=== PATIENT | male | born 1950 | race Caucasian/White ===

== ENCOUNTER → 2024-03-31 | Outpatient (CLI) | payer MEDICARE, MEDICAID, SELFPAY ==
--- NOTE | 2024-03-31 16:30 | EKG_ITS ---
[facility] Test Date: 2024-03-31 Pat Name: MELISA MCCLAIN Department: Room: - Gender: Male Esl Instructional Assistant: RADHAOBI : 1950 Requested By: Gordon Grey Order Number: [id number] Reading MD: Gordon Grey Measurements Intervals [place] Rate: 97 P: 87 ID: [id number] QRS: 64 QRSD: 106 T: 81 QT: 378 QTc: 481 Interpretive Statements SINUS RHYTHM Compared to ECG 04/16/2023 10:23:04 T-wave abnormality no longer present /store/S0/[id number]/[id number]
== END | disposition home or self-care (01) ==
PROVIDERS: PCP Physician Assistant; Referring Provider Student in an Organized Health Care Education/Training Program; Visit Provider Student in an Organized Health Care Education/Training Program
DX: Z01.818 Encounter for other preprocedural examination (principal); H25.811 Combined forms of age-related cataract, right eye
CPT/HCPCS: 93005

== ENCOUNTER 2024-05-20 18:56 | Emergency (ER) | payer MEDICARE, MEDICAID, SELFPAY ==
--- NOTE | 2024-05-20 19:02 | EKG_ITS ---
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
[2024-05-20 19:49] VITALS: BP 177/88; PULSE 89; RESP 18; TEMP 37.1; O2SAT 98; BMI 30.4
--- NOTE | 2024-05-20 20:03 | XR_ITS ---
Examination: Duplex scan of the lower extremity, unilateral left complete Date and time of exam: May 20, 2024 2112 hours Indications: Left leg swelling and pain beginning 2 years ago Technique: Duplex scan of the extremity veins using B-mode/grayscale imaging and Doppler spectral analysis and color flow Attention is directed to internal echogenicity, compression and augmentation involving these veins, color flow assessment, spectral analysis Findings: Major deep venous structures in the extremity demonstrate normal course and caliber. There is no evidence of deep vein thrombosis. Normal color flow and spectral analysis Impression: Negative for DVT..
--- NOTE | 2024-05-20 20:03 | XR_ITS ---
Examination: AP chest single view Technique: Upright AP chest single view Exam date and time: May 20, 20242028 hrs. Indications: Onset shortness of breath today. Findings: Mild prominence cardiac contour Moderate vascular congestion No lobar pneumonia The osseous structures are demineralized Impression: Moderate vascular congestion No lobar pneumonia
--- NOTE | 2024-05-20 20:04 | PD.EDRME ---
Rapid Medical Screening Exam RME Arrival date/time: 05/20/24 18:56 73M with extensive PMH including CVA and HTN presents to ED with LLE swelling, open wounds due to scratching because patient states it's itchy, and well as some SOB. Chief Complaint: Shortness of Breath/Dyspnea Vital signs: Vital Signs Temperature 98.8 F 05/20/24 19:49 Pulse Rate 89 05/20/24 19:49 Respiratory Rate 18 05/20/24 19:49 Blood Pressure 177/88 H 05/20/24 19:49 Pulse Oximetry (%) 98 05/20/24 19:49 Oxygen Delivery Method Room Air 05/20/24 19:49
[2024-05-20 21:23] LABS: Basophils % (Auto) 1 % (0-2.5); Eosinophils # (Auto) 0.5 Thou/mm3 (0.0-0.5); Eosinophils % (Auto) 9 % (0-10); Hematocrit 27.7 % (41.0-53.0); Immature Granulocytes % (Auto) 0 % (0-0); Immature Granulocytes Auto 0.02 Thou/mm3 (0.00-0.00); Lymphocytes # (Auto) 0.8 Thou/mm3 (1.0-4.8); Lymphocytes % (Auto) 15 % (10-50); Mean Corpuscular HGB Conc 31.8 g/dl (31.0-37.0); Mean Corpuscular Hemoglobin 26.9 pg (25.0-35.0); Mean Corpuscular Volume 85 fL (80-100); Monocytes # (Auto) 0.4 Thou/mm3 (0.0-0.8); Monocytes % (Auto) 8 % (0-12); Neutrophils # (Auto) 3.6 Thou/mm3 (1.8-7.7); Neutrophils % (Auto) 67 % (37-80); Nucleated Red Blood Cell % 0 /100 WBC (0); Platelet Count 210 Thou/mm3 (140-440); RDW Standard Deviation 49.9 fL (35.1-43.9); Red Blood Count 3.27 Miln/mm3 (4.50-5.90); White Blood Count 5.3 Thou/mm3 (3.8-10.6)
[2024-05-20 21:34] LABS: Hemoglobin 8.8 g/dL (13.5-16.0)
[2024-05-20 21:45] LABS: Alanine Aminotransferase 26 U/L (10-49); Albumin, Serum 4.1 gm/dL (3.4-4.8); Albumin/Globulin Ratio 1.4 (1.2-2.2); Alkaline Phosphatase 160 U/L (46-116); Anion Gap 10 (7-16); Aspartate Amino Transferase 34 U/L (0-34); B-Type Natriuretic Peptide 468 pg/mL (0-100); BUN/Creatinine Ratio 34 Ratio (12-20); Bilirubin,Total 0.3 mg/dL (0.3-1.2); Blood Urea Nitrogen 34 mg/dL (9-23); Calcium 9.5 mg/dL (8.3-10.6); Calcium (Corrected) 9.5 mg/dL (8.5-10.1); Carbon Dioxide 26.3 mMol/L (20.0-31.0); Chloride 103 mMol/L (98-107); Estimated Creatinine Clearance 53.4 mL/min (>60); Glucose 113 mg/dL (74-106); Osmolality,Calculated 286 (275-295); Sodium 139 mMol/L (136-145); Total Protein 7.1 gm/dL (5.7-8.2); Troponin I < 0.020 ng/mL (0.0-0.045); eGFR > 60 See Note
[2024-05-20 21:50] LABS: Partial Thromboplastin Time 31.6 Seconds (22.0-36.0); Prothrombin Time 11.3 Seconds (9.0-12.2)
[2024-05-20 23:44] VITALS: BP 145/71; PULSE 73; RESP 18; TEMP 36.3; O2SAT 97
--- NOTE | 2024-05-20 23:46 | PD.EDSOB ---
ED SOB =RME/HPI General Chief Complaint: Shortness of Breath/Dyspnea Stated Complaint: SOB x 2 days, left leg swelling Arrival date/time: 05/20/24 18:56 RME / HPI RME / HPI Narrative: 05/20/24 18:56 73M with extensive PMH including CVA and HTN presents to ED with LLE swelling, open wounds due to scratching because patient states it's itchy, and well as some SOB. Dr. Fajardo?s Main ED Evaluation: 73yo male with pmhx CVA, seizures, HTN, HLD BIB his caregiver presents to the ED for a chief complaint of wounds and swelling to his LLE. Caregiver states the patient had an appointment with his PCP today due to having open wounds to his LLE. She states the patient has been picking at his wounds, and his PCP requested an US, so she brought him in for evaluation. Denies any fever, chills or any other associated symptoms. Related Data Home Medications ?Medication ?Instructions ?Recorded ?Confirmed amlodipine 5 mg tablet (Norvasc) 10 mg PO BID #0 tabs 02/24/15 11/19/22 aspirin 81 mg tablet,delayed 81 mg PO QAM HEART ##0 02/24/15 11/19/22 release clopidogrel 75 mg tablet (Plavix) 75 mg PO HS BLOOD THINNER #0 tabs 02/24/15 11/19/22 metoprolol tartrate 50 mg tablet 100 mg PO BID HBP #0 tabs 02/24/15 11/19/22 phenytoin sodium extended 100 mg 300 mg PO HS Seizures ##0 02/24/15 08/12/22 capsule atorvastatin 10 mg tablet (Lipitor) 10 mg PO HS High Cholesterol #0 05/14/15 08/12/22 tabs clonidine HCl 0.3 mg tablet 0.3 mg PO TID High Blood Pressure 05/14/15 08/12/22 #0 tabs sertraline 100 mg tablet (Zoloft) 200 mg PO QDAY DEPRESSION #0 tabs 06/07/19 11/19/22 ascorbic acid (vitamin C) 1,000 mg 1,000 mg PO QDAY 02/14/21 11/19/22 tablet (Vitamin C) loratadine 10 mg tablet 10 mg PO QDAY 02/14/21 11/19/22 pantoprazole 20 mg tablet,delayed 20 mg PO QAM 02/14/21 11/19/22 release spironolactone 50 mg tablet 50 mg PO QDAY 02/14/21 08/12/22 tamsulosin 0.4 mg capsule (Flomax) 0.8 mg PO HS PROSTATE #0 caps 12/27/21 11/19/22 lisinopril 40 mg tablet 40 mg PO QDAY 11/19/22 11/19/22 Previous Rx's ?Medication ?Instructions ?Recorded meclizine 50 mg tablet 50 mg PO BID PRN dizziness #20 tabs 04/16/23 mupirocin 2 % topical ointment 1 applic topical BID #15 grams 05/20/24 Allergies Allergy/AdvReac Type Severity Reaction Status Date / Time codeine Allergy Unknown UNKNOWN Verified 03/20/23 13:32 PER PT Review of Systems Review of Systems Systems Reviewed: All systems reviewed, normal except as documented Past Medical History Past Medical History NEUROLOGIC: Positive Neurological Disorders, Cerebrovascular Accident and Seizures CARDIAC: Positive Cardiac Disorders, Angina, Hypercholesterolemia and Hypertension; Negative Congestive Heart Failure RESPIRATORY: Positive Pneumonia; Negative Chronic Obstructive Pulmonary Disease (COPD) GASTROINTESTINAL: Positive Gastrointestinal Disorders and Ulcer GENITOURINARY: Positive Genitourinary Disorders and Benign Prostatic Hyperplasia; Negative Renal Disease MUSCULOSKELETAL: Positive Musculoskeletal Disorders and Fractures ENDOCRINE: Negative Endocrine Disorders, Diabetes Mellitus Type 1 or Diabetes Mellitus Type 2 HEMATOLOGIC: Negative Blood Disorders OTHER HISTORY: Positive Falls; Negative Autoimmune Disease or Cancer Family History FAMILY HISTORY: Positive Family Neurologic Problems (Patient's brother suffered a stroke), Family Psychiatric Problems, Family Respiratory Disorders, Family Cardiac Disorders, Family Gastrointestinal Problems, Family Cancer and Family Surgery; Negative Family Anesthesia Reaction Social History SMOKING STATUS: Former smoker SUBSTANCE USE: does not use ED Exam Narrative Physical exam: GENERAL APPEARANCE: alert and oriented x 4, well-developed, well-nourished, no acute distress VITALS: All vitals were reviewed and the pulse ox is 97% on room air, which is normal according to my interpretation. HEENT: Normocephalic, atraumatic; pupils equal, round, reactive to light; EOMI; mucous membranes pink, moist; oropharynx clear NECK: Supple LUNGS: CTABL; no wheezes, no rales, no rhonchi HEART: Regular rate, regular rhythm; normal S1, S2; no murmurs ABDOMEN: non distended; normal BS; soft, no tenderness, no guarding, no rebound; no masses, no organomegaly, no hernia BACK: no CVA tenderness EXTREMITIES: atraumatic; 3+ pitting edema bilaterally NEUROLOGIC: awake; alert and oriented x4; cranial nerves II-XII grossly intact; no focal sensory or motor deficits PSYCHIATRIC: appropriate mood and affect SKIN: warm, dry, 3 1cm circular denuted blisters to the left anterior ankle with mild surround erythema and serosanguinous drainage; no rashes Course Course Course Narrative: CXR is ordered for determining the etiology of shortness of breath. Quality Measures none Orders Category Date Time Status EKG (ED ONLY) *Do not use* NOW Care 05/20/24 19:02 Completed EKG (ED Only) Stat Exams 05/20/24 19:02 Draft US venous doppler LE LT Stat Exams 05/20/24 20:03 Completed XR chest 1V portable Stat Exams 05/20/24 20:03 Completed B-Type Natriuretic Peptide Stat Lab 05/20/24 20:43 Completed CBC Stat Lab 05/20/24 20:43 Completed Comprehensive Metabolic Panel Stat Lab 05/20/24 20:43 Completed Partial Thromboplastin Time Stat Lab 05/20/24 20:43 Completed Prothrombin Time with INR Stat Lab 05/20/24 20:43 Completed Troponin I Stat Lab 05/20/24 20:43 Completed Vital Signs Vital signs: Vital Signs Temperature 98.8 F 05/20/24 19:49 Pulse Rate 89 05/20/24 19:49 Respiratory Rate 18 05/20/24 19:49 Blood Pressure 177/88 H 05/20/24 19:49 Pulse Oximetry (%) 98 05/20/24 19:49 Oxygen Delivery Method Room Air 05/20/24 19:49 Shortness of Breath / Dyspnea MDM Narrative MDM Narrative:: Scribe Attestation: 05/20/24 Anna Rachel am scribing for and in the presence of Dr. Fajardo. Patient data External records reviewed:: [facility] previous records (Per chart review, patient was seen here on 04/16/24 for URI.) Clinical information provided by:: director instrumentation Social determinants that could affect healthcare access:: none Patient has the following chronic illnesses:: CVA, seizures, HTN, HLD How is presenting disease/condition affected by chronic disease/condition?: uneffected by Evaluation data The following diagnostics were reviewed and interpreted by me:: lab results, radiology exam(s) and EKG tracing(s) Lab and/or radiology exams considered but not ordered:: none Interpretation Summary: WBC count is normal, PT and INR are normal, PTT is normal, CMP is normal, according to my interpretation. EKG done at 1953, NSR, rate of 88, normal axis, no ectopy, no acute ischemia, according to my interpretation. -------- [facility] Report Signed Patient: MELISA MCCLAIN [facility]. Record#: [id number] Birthdate: 1950 Age/Sex: 73 / M Location: [facility] Attending Dr: Ordering Physician: Robby Zhu PA-C Date of Service: 05/20/24 Procedure(s): XR chest 1V portable Accession Number(s): [id number] cc: Kevan Leon PA-C; Beau Jason MD; Robby Zhu PA-C~ Examination: AP chest single view Technique: Upright AP chest single view Exam date and time: May 20, 2024 2029 hrs. Indications: Onset shortness of breath today. Findings: Mild prominence cardiac contour Moderate vascular congestion No lobar pneumonia The osseous structures are demineralized Impression: Moderate vascular congestion No lobar pneumonia Dictated By: Beau Jason MD Signed By: <Electronically signed by Beau Jason MD in OV> 05/20/242052 [facility] Report Signed Patient: MELISA MCCLAIN [facility]. Record#: [id number] Birthdate: 1950 Age/Sex: 73 / M Location: [facility] Attending Dr: Ordering Physician: Robby Zhu PA-C Date of Service: 05/20/24 Procedure(s): US venous doppler LE LT Accession Number(s): [id number] cc: Kevan Leon PA-C; Beau Jason MD; Robby Zhu PA-C~ Examination: Duplex scan of the lower extremity, unilateral left complete Date and time of exam: May 20, 2024 2112 hours Indications: Left leg swelling and pain beginning 2 years ago Technique: Duplex scan of the extremity veins using B-mode/grayscale imaging and Doppler spectral analysis and color flow Attention is directed to internal echogenicity, compression and augmentation involving these veins, color flow assessment, spectral analysis Findings: Major deep venous structures in the extremity demonstrate normal course and caliber. There is no evidence of deep vein thrombosis. Normal color flow and spectral analysis Impression: Negative for DVT.. Dictated By: Beau Jason MD Signed By: <Electronically signed by Beau Jason MD in OV> 05/20/24 2131 Medications / Prescriptions Medications or Prescriptions considered but not ordered:: none Medication administrations:: see above, if any Consultations Consultation(s) initiated? (list below): No Diagnosis Shortness of Breath Differential Diagnosis: other (cellulitis, necrotizing fasciitis, subcutaneous abscess) Most likely diagnosis given after review of the tests above:: see below Admission Indicated Admission indicated?: not indicated Admission Request Was there a request for admission?: No Disposition Plan Disposition Plan: Discharge Discharge Attestation Discharge Attestation: The patient and all family members were given an opportunity to ask questions and understood the discharge instructions. Discharge instructions specifically effects, indications for sooner follow up or return to the emergency department, and the expected course of current diagnosis. Patient condition: Stable Discharge Plan Plan Patient Disposition: HOME (Self Care) Prescriptions/Referrals Prescriptions/Med Rec: New mupirocin 2 % ointment 1 applic topical BID Qty: 15 0RF No Action lisinopril 40 mg tablet 40 mg PO QDAY phenytoin sodium extended 100 MG capsule 300 mg PO HS Qty: 0 clopidogrel [Plavix] 75 MG tablet 75 mg PO HS Qty: 0 amlodipine [Norvasc] 5 MG tablet 10 mg PO BID Qty: 0 aspirin 81 mg Tablet,Delayed Release (Dr/Ec) 81 mg PO QAM Qty: 0 metoprolol tartrate 50 MG tablet 100 mg PO BID Qty: 0 atorvastatin [Lipitor] 10 MG tablet 10 mg PO HS Qty: 0 clonidine HCl 0.3 MG tablet 0.3 mg PO TID Qty: 0 sertraline [Zoloft] 100 mg tablet 200 mg PO QDAY Qty: 0 tamsulosin [Flomax] 0.4 mg capsule 0.8 mg PO HS Qty: 0 ascorbic acid (vitamin C) [Vitamin C] 1,000 mg Tablet 1,000 mg PO QDAY pantoprazole 20 mg Tablet,Delayed Release (Dr/Ec) 20 mg PO QAM loratadine 10 mg Tablet 10 mg PO QDAY spironolactone 50 mg Tablet 50 mg PO QDAY meclizine 50 mg tablet 50 mg PO BID PRN (Reason: dizziness) Qty: 20 0RF Referrals: Kevan Leon PA-C [Primary Care Provider] - In 1 week Problem List Clinical Impression: Pedal edema, Serous bulla of skin, Cellulitis Patient/Caregiver Discharge Instructions Discharge Activity: activity as tolerated Education Materials: Discharge Instructions for Cellulitis, ED Cellulitis, ED Lymphedema Additional Instructions: Please return to the emergency department if you develop any worsening or you do not improve within the next 48 hours and we will help you Otherwise you should follow-up with your primary care doctor within the next several days Print Language: [place] Stand Alone Forms: [employer] Award Info., Patient Portal Info Letter
== END 2024-05-21 00:16 | disposition home or self-care (01) ==
PROVIDERS: Physician Assistant; Emergency Provider Emergency Medicine; PCP Physician Assistant
DX: L03.116 Cellulitis of left lower limb (principal); R06.02 Shortness of breath; I10 Essential (primary) hypertension; E78.5 Hyperlipidemia, unspecified; Z86.73 Personal history of transient ischemic attack (TIA), and cerebral infarction without residual deficits; Z87.891 Personal history of nicotine dependence
CPT/HCPCS: 36415; 71045; 80053; 83880; 84484; 85025; 85610; 85730; 93005; 93971; 99284

== ENCOUNTER 2024-06-11 18:21 | Emergency (ER) | payer MEDICARE, MEDICAID, SELFPAY ==
[2024-06-11 19:06] VITALS: BP 149/76; PULSE 79; RESP 18; TEMP 37; O2SAT 95
--- NOTE | 2024-06-11 19:07 | EKG_ITS ---
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
--- NOTE | 2024-06-11 19:27 | XR_ITS ---
Examination: AP chest single view Technique one AP upright portable chest single view Exam date and time: June 03, 20241957 hrs. Comparison May 20, 2024 Indications: Patient fell 3 days ago with injury to the chest, chest pain Findings: No pneumothorax Mild enlargement cardiac contour Ectatic thoracic aorta Clavicles ribs appear intact Impression: No pneumothorax Osseous structures appear intact
--- NOTE | 2024-06-11 19:27 | XR_ITS ---
Examination: CT cervical spine without contrast 2-D sagittal reconstructions 2-D coronal reconstructions 3-D reconstructions. Exam date and time:June 03, 2024 1938 hrs. Patient fell today with into the neck, neck pain CTDI:vol (mGy) 7.91 DLP: (mGycm) 188 pain Technique: Multiple 2 mm axial sections of the cervical spine have been obtained. The coronal and sagittal reconstructions have been obtained. 3-D reconstructions have been obtained. Low dose protocols were performed. One or more of the following dose reduction techniques were used; automated exposure control, adjustment of the mA and/or KV according to patient size, use of iterative reconstruction technique. Findings: Axial sections demonstrate intact base of the skull. C1 exhibit satisfactory relationship to the odontoid. No acute cervical vertebral body fracture seen. Alignment posterior spinous processes satisfactory. Impression: No acute cervical fracture.
--- NOTE | 2024-06-11 19:27 | XR_ITS ---
Examination: CT brain head without contrast. 2-D sagittal coronal reconstructions Date and time of exam:June 11, 2024 1938 hrs. Patient fell today with injury to head, head pain Comparison: July 17, 2021 CTDI: vol (mGy):45.4 DLP: (mGycm):907 Technique: Multiple CT axial sections of the brain have been obtained, 5 mm slice thickness. Contrast has not been administered. 2-D sagittal, coronal reconstructions have been obtained Low dose protocols were performed. One or more of the following dose reduction techniques were used; automated exposure control, adjustment of the mA and/or KV according to patient size, use of iterative reconstruction technique. Findings: The study is severely limited secondary to patient motion There remains severe enlargement of the left lateral ventricle with left cerebral hemisphere atrophy No gross hemorrhage Prominent right maxillary sinusitis Acute right mastoiditis Impression: Severely limited study secondary to patient motion No gross hemorrhage Acute right mastoiditis
--- NOTE | 2024-06-11 19:28 | PD.EDRME ---
Rapid Medical Screening Exam [facility] Arrival date/time: 06/11/24 18:21 73M with history of CVA, HTN and seizures presents to ED with caregiver for increased weakness in the last 3 days leading to several falls. Patient has no complaints. Chief Complaint: Fall Vital signs: Vital Signs Temperature 98.6 F 06/11/24 19:06 Pulse Rate 79 06/11/24 19:06 Respiratory Rate 18 06/11/24 19:06 Blood Pressure 149/76 H 06/11/24 19:06 Pulse Oximetry (%) 95 06/11/24 19:06 Oxygen Delivery Method Room Air 06/11/24 19:06
[2024-06-11 20:15] LABS: Basophils % (Auto) 0 % (0-2.5); Eosinophils # (Auto) 0.2 Thou/mm3 (0.0-0.5); Eosinophils % (Auto) 2 % (0-10); Hematocrit 24.2 % (41.0-53.0); Immature Granulocytes % (Auto) 0 % (0-0); Immature Granulocytes Auto 0.01 Thou/mm3 (0.00-0.00); Lymphocytes # (Auto) 1.1 Thou/mm3 (1.0-4.8); Lymphocytes % (Auto) 17 % (10-50); Mean Corpuscular HGB Conc 33.9 g/dl (31.0-37.0); Mean Corpuscular Hemoglobin 27.6 pg (25.0-35.0); Mean Corpuscular Volume 82 fL (80-100); Monocytes # (Auto) 0.8 Thou/mm3 (0.0-0.8); Monocytes % (Auto) 12 % (0-12); Neutrophils # (Auto) 4.4 Thou/mm3 (1.8-7.7); Neutrophils % (Auto) 68 % (37-80); Nucleated Red Blood Cell % 0 /100 WBC (0); Platelet Count 162 Thou/mm3 (140-440); RDW Standard Deviation 47.9 fL (35.1-43.9); Red Blood Count 2.97 Miln/mm3 (4.50-5.90); White Blood Count 6.5 Thou/mm3 (3.8-10.6)
[2024-06-11 20:19] LABS: Hemoglobin 8.2 g/dL (13.5-16.0)
[2024-06-11 20:25] LABS: Alanine Aminotransferase 24 U/L (10-49); Albumin, Serum 3.6 gm/dL (3.4-4.8); Albumin/Globulin Ratio 1.3 (1.2-2.2); Alkaline Phosphatase 133 U/L (46-116); Anion Gap 7 (7-16); Aspartate Amino Transferase 33 U/L (0-34); BUN/Creatinine Ratio 34 Ratio (12-20); Bilirubin,Total 0.3 mg/dL (0.3-1.2); Blood Urea Nitrogen 44 mg/dL (9-23); Calcium 8.3 mg/dL (8.3-10.6); Calcium (Corrected) 8.6 mg/dL (8.5-10.1); Carbon Dioxide 24.8 mMol/L (20.0-31.0); Chloride 100 mMol/L (98-107); Creatinine (Component) 1.3 mg/dL (0.6-1.3); Globulin 2.7 gm/dL (2.3-3.5); Glucose 91 mg/dL (74-106); Osmolality,Calculated 275 (275-295); Potassium 3.9 mMol/L (3.4-5.1); Sodium 132 mMol/L (136-145); Total Protein 6.3 gm/dL (5.7-8.2); Troponin I < 0.020 ng/mL (0.0-0.045); eGFR 58 See Note
--- NOTE | 2024-06-11 21:31 | PD.EDFALL ---
ED Fall Injury RME/HPI General Chief Complaint: Fall Stated Complaint: Fall X 3, swollen legs Time Seen by Provider: 06/11/24 21:39 Source: family Arrival date/time: 06/11/24 18:21 Limitations: no limitations RME / HPI RME / HPI Narrative: Dr. Ordoñez?s Main ED Evaluation: 73-year-old male with a history of CVA, HTN, and seizures presents to the emergency department accompanied by his caregiver for evaluation of progressive weakness over the past three days, which has resulted in multiple falls. The patient himself does not endorse any specific complaints but was noted to have fallen while attempting to use the restroom unassisted. The exact time of the incident is unknown, and there is no reported loss of consciousness, or seizure activity at this time. [facility] [place] [facility] staff sent patient to ED for further evaluation. Related Data Home Medications ?Medication ?Instructions ?Recorded ?Confirmed amlodipine 5 mg tablet (Norvasc) 10 mg PO BID #0 tabs 02/24/15 11/19/22 aspirin 81 mg tablet,delayed 81 mg PO QAM HEART ##0 02/24/15 11/19/22 release clopidogrel 75 mg tablet (Plavix) 75 mg PO HS BLOOD THINNER #0 tabs 02/24/15 11/19/22 metoprolol tartrate 50 mg tablet 100 mg PO BID HBP #0 tabs 02/24/15 11/19/22 phenytoin sodium extended 100 mg 300 mg PO HS Seizures ##0 02/24/15 08/12/22 capsule atorvastatin 10 mg tablet (Lipitor) 10 mg PO HS High Cholesterol #0 05/14/15 08/12/22 tabs clonidine HCl 0.3 mg tablet 0.3 mg PO TID High Blood Pressure 05/14/15 08/12/22 #0 tabs sertraline 100 mg tablet (Zoloft) 200 mg PO QDAY DEPRESSION #0 tabs 06/07/19 11/19/22 ascorbic acid (vitamin C) 1,000 mg 1,000 mg PO QDAY 02/14/21 11/19/22 tablet (Vitamin C) loratadine 10 mg tablet 10 mg PO QDAY 02/14/21 11/19/22 pantoprazole 20 mg tablet,delayed 20 mg PO QAM 02/14/21 11/19/22 release spironolactone 50 mg tablet 50 mg PO QDAY 02/14/21 08/12/22 tamsulosin 0.4 mg capsule (Flomax) 0.8 mg PO HS PROSTATE #0 caps 12/27/21 11/19/22 lisinopril 40 mg tablet 40 mg PO QDAY 11/19/22 11/19/22 Previous Rx's ?Medication ?Instructions ?Recorded meclizine 50 mg tablet 50 mg PO BID PRN dizziness #20 tabs 04/16/23 mupirocin 2 % topical ointment 1 applic topical BID #15 grams 05/20/24 doxycycline hyclate 100 mg capsule 100 mg PO BID #20 caps 06/12/24 Allergies Allergy/AdvReac Type Severity Reaction Status Date / Time codeine Allergy Unknown UNKNOWN Verified 06/11/24 18:25 PER PT morphine Allergy Verified 06/11/24 18:25 Review of Systems Review of Systems Systems Reviewed: All systems reviewed, normal except as documented Past Medical History Past Medical History NEUROLOGIC: Positive Neurological Disorders, Cerebrovascular Accident and Seizures CARDIAC: Positive Cardiac Disorders, Angina, Hypercholesterolemia and Hypertension; Negative Congestive Heart Failure RESPIRATORY: Positive Pneumonia; Negative Chronic Obstructive Pulmonary Disease (COPD) GASTROINTESTINAL: Positive Gastrointestinal Disorders and Ulcer GENITOURINARY: Positive Genitourinary Disorders and Benign Prostatic Hyperplasia; Negative Renal Disease MUSCULOSKELETAL: Positive Musculoskeletal Disorders and Fractures ENDOCRINE: Negative Endocrine Disorders, Diabetes Mellitus Type 1 or Diabetes Mellitus Type 2 HEMATOLOGIC: Negative Blood Disorders OTHER HISTORY: Positive Falls; Negative Autoimmune Disease or Cancer Family History FAMILY HISTORY: Positive Family Neurologic Problems (Patient's brother suffered a stroke), Family Psychiatric Problems, Family Respiratory Disorders, Family Cardiac Disorders, Family Gastrointestinal Problems, Family Cancer and Family Surgery; Negative Family Anesthesia Reaction Social History SMOKING STATUS: Never smoker SUBSTANCE USE: does not use ED Exam Narrative Physical exam: The patient has bilateral pedal edema extending up to the knees. There is an abrasion on the forearm that appears old and decrepitous, with no signs of active infection or acute inflammation. The rectal exam reveals guaiac-negative light brown stool with no visible blood. The skin exam shows no rashes or ulcers, but erythema is present on the left anterior guerrero, lateral aspect. The extremities exhibit bilateral non-pitting edema, with the right leg appearing slightly larger than the left, both hands are contracted, and no calf tenderness is noted. General Limitations: Present no limitations General appearance: Present alert and in no apparent distress Head Head exam: Present atraumatic Eye Eye exam: Present normal appearance, PERRL and EOMI ENT ENT exam: Present normal exam, normal oropharynx and mucous membranes moist Neck Neck exam: Present normal inspection, full ROM and trachea midline Chest Chest inspection: Present normal inspection and symmetric chest wall rise Respiratory Respiratory exam: Present normal lung sounds bilaterally Cardiovascular Cardiovascular exam: Present regular rate, normal rhythm and normal heart sounds Abdominal Exam Abdominal exam: Present soft and normal bowel sounds Extremities Exam Extremities exam: Present normal inspection and full ROM Back Exam Back exam: Present normal inspection and full ROM Neurological Exam Neurological exam: Present alert, oriented X3 and CN II-XII intact Psychiatric Psychiatric exam: Present normal affect and normal mood Skin Skin exam: Present warm, dry, intact and normal color Course Course Course Narrative: CXR is ordered for determining etiology of chest pain. Quality Measures none Orders Category Date Time Status Blood glucose [Bedside Blood Glucose] NOW Care 06/11/24 19:07 Active EKG (ED ONLY) *Do not use* NOW Care 06/11/24 19:[address] cervical spine wo con Stat Exams 06/11/24 19:[address] head/brain wo con Stat Exams 06/11/24 19:27 Completed EKG (ED Only) Stat Exams 06/11/24 19:07 Draft US venous doppler LE BI Stat Exams 06/11/24 22:00 Completed XR chest 1V portable Stat Exams 06/11/24 19:27 Completed CBC Stat Lab 06/11/24 19:50 Completed Comprehensive Metabolic Panel Stat Lab 06/11/24 19:50 Completed Occult Blood, Stool (LAB) Stat Lab 06/11/24 21:56 Completed Troponin I Stat Lab 06/11/24 19:50 Completed Urinalysis, C/S if Indicated Stat Lab 06/11/24 22:12 Completed Vital Signs Vital signs: Vital Signs Temperature 98.6 F 06/11/24 19:06 Pulse Rate 79 06/11/24 19:06 Respiratory Rate 18 06/11/24 19:06 Blood Pressure 149/76 H 06/11/24 19:06 Pulse Oximetry (%) 95 06/11/24 19:06 Oxygen Delivery Method Room Air 06/11/24 19:06 Procedures -ED Procedure Comment EKG obtained on 06/11/24 at 19:11 shows a normal sinus rhythm at a rate of 79 bpm, with no ST elevations, no ST depressions, and nonspecific T-wave abnormalities; findings do not suggest acute STEMI or ischemic changes, according to my interpretation. Fall [facility] Narrative [facility] Narrative:: Scribe Attestation: I, Rebekah Greer, am scribing for and in the presence of Dr. Ordoñez. Provider Notation: Although this document has been carefully reviewed, there may still be some phonetic and other typographical errors. These errors are purely grammatical due to imperfections in the software program and should not be construed in any way to compromise the substance of the patient's medical care during this visit. Patient data External records reviewed:: [facility] previous records Clinical information provided by:: human resources trainer Social determinants that could affect healthcare access:: none Patient has the following chronic illnesses:: see PMH How is presenting disease/condition affected by chronic disease/condition?: uneffected by Evaluation data The following diagnostics were reviewed and interpreted by me:: lab results, radiology exam(s) and EKG tracing(s) Lab and/or radiology exams considered but not ordered:: na Interpretation Summary: Examination: AP chest single view Technique one AP upright portable chest single view Exam date and time: June 03, 20241957 hrs. Comparison May 20, 2024 Indications: Patient fell 3 days ago with injury to the chest, chest pain Findings: No pneumothorax Mild enlargement cardiac contour Ectatic thoracic aorta Clavicles ribs appear intact Impression: No pneumothorax Osseous structures appear intact Dictated By: Beau Jason MD Examination: CT brain head without contrast. Date and time of exam:June 11, 2024 1938 hrs. Patient fell today with injury to head, head pain Comparison: July 17, 2021 Findings: The study is severely limited secondary to patient motion There remains severe enlargement of the left lateral ventricle with left cerebral hemisphere atrophy No gross hemorrhage Prominent right maxillary sinusitis Acute right mastoiditis Impression: Severely limited study secondary to patient motion No gross hemorrhage Acute right mastoiditis Dictated By: Beau Jason MD Examination: CT cervical spine without contrast Exam date and time:June 03, 2024 1938 hrs. Patient fell today with into the neck, neck pain Findings: Axial sections demonstrate intact base of the skull. C1 exhibit satisfactory relationship to the odontoid. No acute cervical vertebral body fracture seen. Alignment posterior spinous processes satisfactory. Impression: No acute cervical fracture. Dictated By: Beau Jason MD [place] [facility] Report Signed Patient: MELISA MCCLAIN Record#: [id number] Birthdate: 1950 Age/Sex: 73 / M Location: [facility] Attending Dr: Ordering Physician: Lata Ordoñez MD Date of Service: 06/11/24 Procedure(s): US venous doppler LE BI Accession Number(s): [id number] cc: Cleveland Cotter MD; Beau Jason MD; Lata Ordoñez MD~ Examination: Venous duplex lower extremity sonogram, bilateral. Date and time of exam: June 11, 2024 1030 hrs. Indications: Bilateral leg swelling and pain after falling 3 days ago Technique: Multiple sonographic images of the deep venous system have been obtained. B-mode/2-D grayscale imaging of vascular structures and Doppler spectral analysis (waveforms) and color performed Both legs are examined. Findings: Deep venous systems do not demonstrate abnormal echogenicity. No diagnostic visualization right popliteal vein All visualized deep veins exhibit compressibility. Impression: Negative for deep vein thrombosis Dictated By: Beau Jason MD Signed By: <Electronically signed by Beau Jason MD in OV> 06/11/24 2322 Medications / Prescriptions Medications or Prescriptions considered but not ordered:: na Medication administrations:: as above, if any Consultations Consultation(s) initiated? (list below): No Diagnosis Fall Differential Diagnosis: other (GI bleed, renal failure, cellulitis, DVT) Most likely diagnosis given after review of the tests above:: see below Admission Indicated Admission indicated?: not indicated Admission Request Was there a request for admission?: No Disposition Plan Disposition Plan: Discharge Discharge Attestation Discharge Attestation: The patient and all family members were given an opportunity to ask questions and understood the discharge instructions. Discharge instructions specifically effects, indications for sooner follow up or return to the emergency department, and the expected course of current diagnosis. Patient condition: Stable Discharge Plan Plan Patient Disposition: Xfer Skilled Nsg Fac (SNF) Patient condition on transfer: Stable Prescriptions/Referrals Prescriptions/Med Rec: No Action lisinopril 40 mg tablet 40 mg PO QDAY phenytoin sodium extended 100 MG capsule 300 mg PO HS Qty: 0 clopidogrel [Plavix] 75 MG tablet 75 mg PO HS Qty: 0 amlodipine [Norvasc] 5 MG tablet 10 mg PO BID Qty: 0 aspirin 81 mg Tablet,Delayed Release (Dr/Ec) 81 mg PO QAM Qty: 0 metoprolol tartrate 50 MG tablet 100 mg PO BID Qty: 0 atorvastatin [Lipitor] 10 MG tablet 10 mg PO HS Qty: 0 clonidine HCl 0.3 MG tablet 0.3 mg PO TID Qty: 0 sertraline [Zoloft] 100 mg tablet 200 mg PO QDAY Qty: 0 tamsulosin [Flomax] 0.4 mg capsule 0.8 mg PO HS Qty: 0 ascorbic acid (vitamin C) [Vitamin C] 1,000 mg Tablet 1,000 mg PO QDAY pantoprazole 20 mg Tablet,Delayed Release (Dr/Ec) 20 mg PO QAM loratadine 10 mg Tablet 10 mg PO QDAY spironolactone 50 mg Tablet 50 mg PO QDAY meclizine 50 mg tablet 50 mg PO BID PRN (Reason: dizziness) Qty: 20 0RF mupirocin 2 % ointment 1 applic topical BID Qty: 15 0RF Referrals: Cleveland Cotter MD [Primary Care Provider] - In 1 week Problem List Clinical Impression: Cellulitis Patient/Caregiver Discharge Instructions Education Materials: ED Cellulitis Print Language: Hebrew Stand Alone Forms: [employer] Award Info., Patient Portal Info Letter
[2024-06-11 21:40] VITALS: BP 158/88; PULSE 81; RESP 19; TEMP 36.8; O2SAT 98
--- NOTE | 2024-06-11 22:00 | XR_ITS ---
Examination: Venous duplex lower extremity sonogram, bilateral. Date and time of exam: June 11, 2024 1030 hrs. Indications: Bilateral leg swelling and pain after falling 3 days ago Technique: Multiple sonographic images of the deep venous system have been obtained. B-mode/2-D grayscale imaging of vascular structures and Doppler spectral analysis (waveforms) and color performed Both legs are examined. Findings: Deep venous systems do not demonstrate abnormal echogenicity. No diagnostic visualization right popliteal vein All visualized deep veins exhibit compressibility. Impression: Negative for deep vein thrombosis
[2024-06-11 22:19] LABS: Collection Type, Urine Clean Catch
[2024-06-11 22:26] LABS: Bacteria,Urine Rare; Bilirubin,Urine Negative (Negative); Blood,Urine 2+ (Negative); Clarity,Urine Clear (Clear/Hazy); Color,Urine Lt-Yellow (Lt Yel-Yel); Culture Indicated,Urine Not Indicated; Glucose, Urine Negative (Negative); Ketones,Urine Negative (Negative); Leukocyte Esterase,Urine Negative (Negative); Nitrite,Urine Negative (Negative); Protein,Urine 2+ (Neg - Trace); RBC,Urine 67 /hpf (0-3); Specific Gravity,Urine 1.014 (1.001-1.035); Squamous Epithelial Cell,Urine < 1 /hpf (0-5); Urobilinogen,Urine Negative mg/dL (0.0-1.0); WBC,Urine 1 /hpf (0-5)
[2024-06-11 22:54] LABS: OBS Developer Lot # 23003; OBS QC OK? Yes; Occult Blood, Stool Negative (Negative)
[2024-06-12] MEDS: cefTRIAXone 1,000 MG, LIDOCAINE 1% 20 ML 2.1 ML IM (00:58)
== END 2024-06-12 01:11 | disposition home or self-care (01) ==
PROVIDERS: Physician Assistant; Emergency Provider Emergency Medicine; PCP Family Medicine
DX: L03.115 Cellulitis of right lower limb (principal); L03.116 Cellulitis of left lower limb; H70.001 Acute mastoiditis without complications, right ear; R07.9 Chest pain, unspecified; M54.2 Cervicalgia; R29.6 Repeated falls; I10 Essential (primary) hypertension; Z86.73 Personal history of transient ischemic attack (TIA), and cerebral infarction without residual deficits; Z88.5 Allergy status to narcotic agent; W19.XXXA Unspecified fall, initial encounter
CPT/HCPCS: 36415; 70450; 71045; 72125; 80053; 81001; 82270; 84484; 85025; 93005; 93970; 96372; 99284; J0696; J3490

== ENCOUNTER 2024-06-20 12:59 | Emergency (ER) | payer MEDICARE, MEDICAID, SELFPAY ==
[2024-06-20] VITALS (9 sets, daily range): BP systolic 141–181; BP diastolic 75–122; PULSE 58–78; RESP 17–97; TEMP 36.6–36.8; O2SAT 16–100; BMI 29.0
--- NOTE | 2024-06-20 13:08 | PD.EDAMS ---
Altered Mental Status RME/HPI General Chief Complaint: General Adult/Misc Complain Stated Complaint: WEAKNESS Time Seen by Provider: 06/20/24 13:09 Arrival date/time: 06/20/24 12:59 RME / HPI RME / HPI narrative: DR. CHAND MAIN ED EVALUATION: 73 year old male with past medical history significant for CVA, hypertension, and seizures presents to the Emergency Department BIBA from alf with complaint of altered mental status per alf auto top mechanic; however, per EMS, patient was alert and oriented x4 and was able to identify all caregivers. His blood glucose here was 50 but patient oriented and has no complaints. Patient denies any pain or any symptoms at all, asymptomatic. Related Data Home Medications ?Medication ?Instructions ?Recorded ?Confirmed amlodipine 5 mg tablet (Norvasc) 10 mg PO BID #0 tabs 02/24/15 11/19/22 aspirin 81 mg tablet,delayed 81 mg PO QAM HEART ##0 02/24/15 11/19/22 release clopidogrel 75 mg tablet (Plavix) 75 mg PO HS BLOOD THINNER #0 tabs 02/24/15 11/19/22 metoprolol tartrate 50 mg tablet 100 mg PO BID HBP #0 tabs 02/24/15 11/19/22 phenytoin sodium extended 100 mg 300 mg PO HS Seizures ##0 02/24/15 08/12/22 capsule atorvastatin 10 mg tablet (Lipitor) 10 mg PO HS High Cholesterol #0 05/14/15 08/12/22 tabs clonidine HCl 0.3 mg tablet 0.3 mg PO TID High Blood Pressure 05/14/15 08/12/22 #0 tabs sertraline 100 mg tablet (Zoloft) 200 mg PO QDAY DEPRESSION #0 tabs 06/07/19 11/19/22 ascorbic acid (vitamin C) 1,000 mg 1,000 mg PO QDAY 02/14/21 11/19/22 tablet (Vitamin C) loratadine 10 mg tablet 10 mg PO QDAY 02/14/21 11/19/22 pantoprazole 20 mg tablet,delayed 20 mg PO QAM 02/14/21 11/19/22 release spironolactone 50 mg tablet 50 mg PO QDAY 02/14/21 08/12/22 tamsulosin 0.4 mg capsule (Flomax) 0.8 mg PO HS PROSTATE #0 caps 12/27/21 11/19/22 lisinopril 40 mg tablet 40 mg PO QDAY 11/19/22 11/19/22 Previous Rx's ?Medication ?Instructions ?Recorded meclizine 50 mg tablet 50 mg PO BID PRN dizziness #20 tabs 04/16/23 mupirocin 2 % topical ointment 1 applic topical BID #15 grams 05/20/24 doxycycline hyclate 100 mg capsule 100 mg PO BID #20 caps 06/12/24 Allergies Allergy/AdvReac Type Severity Reaction Status Date / Time codeine Allergy Unknown UNKNOWN Verified 06/11/24 18:25 PER PT morphine Allergy Verified 06/11/24 18:25 Review of Systems Review of Systems Systems Reviewed: All systems reviewed, normal except as documented Narrative Review of Systems: GEN: No fever, no chills, no weight loss EYES: No discharge, no visual changes, no pain HEENT: No ear pain, no congestion, no sore throat PULM: No shortness of breath, no cough, no congestion CV: No chest pain, no dyspnea on exertion, no palpitations GI: No nausea, no vomiting, no diarrhea, no pain, no constipation : No frequency, no urgency and no dysuria MUSC/SKEL: No joint pain, no back pain SKIN: No rash PSYCH: No hallucinations, no depression HEME/LYMPH: No easy bleeding or bruising tendencies NEURO: No weakness, no headache Past Medical History Past Medical History NEUROLOGIC: Positive Neurological Disorders, Cerebrovascular Accident and Seizures CARDIAC: Positive Cardiac Disorders, Angina, Hypercholesterolemia and Hypertension; Negative Congestive Heart Failure RESPIRATORY: Positive Pneumonia; Negative Chronic Obstructive Pulmonary Disease (COPD) GASTROINTESTINAL: Positive Gastrointestinal Disorders and Ulcer GENITOURINARY: Positive Genitourinary Disorders and Benign Prostatic Hyperplasia; Negative Renal Disease MUSCULOSKELETAL: Positive Musculoskeletal Disorders and Fractures ENDOCRINE: Negative Endocrine Disorders, Diabetes Mellitus Type 1 or Diabetes Mellitus Type 2 HEMATOLOGIC: Negative Blood Disorders OTHER HISTORY: Positive Falls; Negative Autoimmune Disease or Cancer Family History FAMILY HISTORY: Positive Family Neurologic Problems (Patient's brother suffered a stroke), Family Psychiatric Problems, Family Respiratory Disorders, Family Cardiac Disorders, Family Gastrointestinal Problems, Family Cancer and Family Surgery; Negative Family Anesthesia Reaction Social History SMOKING STATUS: Never smoker SUBSTANCE USE: does not use ALCOHOL: Never ED Exam Narrative Physical exam: GENERAL APPEARANCE: alert and oriented x 4, well-developed, well-nourished, no acute distress VITALS: All vitals were reviewed and the pulse ox is 99% on room air, which is normal according to my interpretation. HEENT: Normocephalic, atraumatic; pupils equal, round, reactive to light; EOMI; mucous membranes pink, moist; oropharynx clear NECK: Supple LUNGS: CTABL; no wheezes, no rales, no rhonchi HEART: Regular rate, regular rhythm; normal S1, S2; no murmurs ABDOMEN: non distended; normal BS; soft, no tenderness, no guarding, no rebound; no masses, no organomegaly, no hernia BACK: no CVA tenderness EXTREMITIES: atraumatic; no edema NEUROLOGIC: awake; alert and oriented x4; cranial nerves II-XII grossly intact; no focal sensory or motor deficits PSYCHIATRIC: appropriate mood and affect SKIN: warm, dry, normal color; no rashes Course Quality Measures none Orders Category Date Time Status US venous doppler LE LT Stat Exams 06/20/24 16:50 Completed UA, C/S IF [Urinalysis, C/S if Indicated] Stat Lab 06/20/24 15:11 Completed Dextrose 50% Syr [D50w Syringe Abboject] Med 06/20/24 13:05 Discontinued 50 ml IV X1 ONE cloNIDine HCL [Catapres] Med 06/20/24 19:25 Discontinued 0.3 mg PO X1 ONE Vital Signs Vital signs: Vital Signs Temperature 98.2 F 06/20/24 13:06 Pulse Rate 58 L 06/20/24 13:06 Respiratory Rate 17 06/20/24 13:06 Blood Pressure 149/75 H 06/20/24 13:06 Pulse Oximetry (%) 99 06/20/24 13:06 Oxygen Delivery Method Room Air 06/20/24 13:06 Altered Mental Status MDM Narrative MDM Narrative:: I, Mercedes Luz am scribing for and in the presence of Dr. Chand. Patient data External records reviewed:: [facility] previous records (Reviewed last ED visit dated 03/03/24, discharged with the following: Anemia) and EMS form Clinical information provided by:: patient and EMS Social determinants that could affect healthcare access:: housing (alf) Patient has the following chronic illnesses:: CVA, hypertension, and seizures How is presenting disease/condition affected by chronic disease/condition?: uneffected by Evaluation data The following diagnostics were reviewed and interpreted by me:: lab results and radiology exam(s) Lab and/or radiology exams considered but not ordered:: none Interpretation Summary: Hypoglycemia Medications / Prescriptions Medications or Prescriptions considered but not ordered:: none Medication administrations:: Medication Administration History Discontinued Medications Clonidine (Clonidine Hcl 0.1 Mg Tablet) 0.3 mg PO X1 ONE Stop: 06/20/24 19:26 Last Admin: 06/20/24 19:36 Dose: 0.3 mg Documented By: SALBADOR Dextrose (Dextrose 50%-Water Inj 50 Ml Syringe) 50 ml IV X1 ONE Stop: 06/20/24 13:06 Last Admin: 06/20/24 15:17 Dose: Not Given Documented By: DOUGLAS Non-Admin Reason: Cancelled by Provider see above Consultations Consultation(s) initiated? (list below): No Diagnosis Differential diagnosis altered mental status: altered mental status, hypoglycemia and sepsis Most likely diagnosis given after review of the tests above:: Hypoglycemia Admission Indicated Admission indicated?: not indicated Admission Request Was there a request for admission?: No Disposition Plan Disposition Plan: other (specify) (Patient signout to the night baker provider, pending ultrasound report.) Discharge Plan Plan Patient Disposition: HOME (Self Care) Patient condition on transfer: Stable Prescriptions/Referrals Prescriptions/Med Rec: No Action lisinopril 40 mg tablet 40 mg PO QDAY phenytoin sodium extended 100 MG capsule 300 mg PO HS Qty: 0 clopidogrel [Plavix] 75 MG tablet 75 mg PO HS Qty: 0 amlodipine [Norvasc] 5 MG tablet 10 mg PO BID Qty: 0 aspirin 81 mg Tablet,Delayed Release (Dr/Ec) 81 mg PO QAM Qty: 0 metoprolol tartrate 50 MG tablet 100 mg PO BID Qty: 0 atorvastatin [Lipitor] 10 MG tablet 10 mg PO HS Qty: 0 clonidine HCl 0.3 MG tablet 0.3 mg PO TID Qty: 0 sertraline [Zoloft] 100 mg tablet 200 mg PO QDAY Qty: 0 tamsulosin [Flomax] 0.4 mg capsule 0.8 mg PO HS Qty: 0 ascorbic acid (vitamin C) [Vitamin C] 1,000 mg Tablet 1,000 mg PO QDAY pantoprazole 20 mg Tablet,Delayed Release (Dr/Ec) 20 mg PO QAM loratadine 10 mg Tablet 10 mg PO QDAY spironolactone 50 mg Tablet 50 mg PO QDAY meclizine 50 mg tablet 50 mg PO BID PRN (Reason: dizziness) Qty: 20 0RF mupirocin 2 % ointment 1 applic topical BID Qty: 15 0RF doxycycline hyclate 100 mg capsule 100 mg PO BID Qty: 20 0RF Referrals: Kevan Leon PA-C [Primary Care Provider] - In 1 week Problem List Clinical Impression: Hypoglycemia Patient/Caregiver Discharge Instructions Education Materials: Hypoglycemia (Low Blood Sugar) Additional Instructions: Return to the emergency department for any worsening symptoms or new concerns. I am sorry they did not give you your blood pressure medication today but it is now given Print Language: Latvian Stand Alone Forms: [employer] Award Info., Patient Portal Info Letter
--- NOTE | 2024-06-20 13:09 | PC.NURSE ---
Upon Arrival asked oil well drilling manager Ezio to check blood sugar while in ambulance bay, fsbs 50mg/dl, Mannie Feliz made aware, no iv needed at this time, per Mannie Feliz give oral juice then re assess. 240ml of juice provided. patient alert and oriented x 3.
--- NOTE | 2024-06-20 15:09 | PC.NURSE ---
bedside glucose 67; ER provider notified and 2 juice boxes given
[2024-06-20 15:24] LABS: Collection Type, Urine Clean Catch
[2024-06-20 15:37] LABS: Bilirubin,Urine Negative (Negative); Blood,Urine Negative (Negative); Clarity,Urine Clear (Clear/Hazy); Color,Urine Yellow (Lt Yel-Yel); Culture Indicated,Urine Not Indicated; Glucose, Urine Negative (Negative); Ketones,Urine Negative (Negative); Leukocyte Esterase,Urine Negative (Negative); Nitrite,Urine Negative (Negative); PH,Urine 6.5 (5.0-7.0); Protein,Urine Trace (Neg - Trace); RBC,Urine 9 /hpf (0-3); Specific Gravity,Urine 1.024 (1.001-1.035); Squamous Epithelial Cell,Urine < 1 /hpf (0-5); Urobilinogen,Urine Negative mg/dL (0.0-1.0); WBC,Urine 1 /hpf (0-5)
--- NOTE | 2024-06-20 16:50 | XR_ITS ---
Examination: Duplex scan of the lower extremity, unilateral left complete Date and time of exam: June 20, 2024 1819 hrs. Indications: Left leg swelling and pain beginning 2 months ago Technique: Duplex scan of the extremity veins using B-mode/grayscale imaging and Doppler spectral analysis and color flow Attention is directed to internal echogenicity, compression and augmentation involving these veins, color flow assessment, spectral analysis Findings: Major deep venous structures in the extremity demonstrate normal course and caliber. There is no evidence of deep vein thrombosis. Normal color flow and spectral analysis Impression: Negative for DVT..
[2024-06-20] MEDS: cloNIDine HCL 0.1 MG TABLET 0.3 MG PO (19:36)
--- NOTE | 2024-06-20 19:52 | PD.EDADDENDU ---
Emergency Room Addendum Addendum Narrative: 1800: Care assumed from Dr. Chand. Past medical, surgical, social and family history reviewed. Vitals and home medications reviewed. Results and treatment plan discussed. I will assume the care of the patient at this time and will follow the patient, pending US results. Please refer to the emergency department record for history and examination from initial visit. The following addendum documentation note is intended to reflect any pending information, findings, or radiology results not included in the patient?s initial chart. Examination: Duplex scan of the lower extremity, unilateral left complete Date and time of exam: June 20, 2024 1819 hrs. Indications: Left leg swelling and pain beginning 2 months ago Findings: Major deep venous structures in the extremity demonstrate normal course and caliber. There is no evidence of deep vein thrombosis. Normal color flow and spectral analysis Impression: Negative for DVT.. Dictated By: Beau Jason MD 2026: I have spoken with the patient and discussed today?s findings, in addition to providing specific details for the plan of care. Questions are answered and there is an agreement with the plan. Re-assessment at the time of disposition demonstrates that the patient is in no acute distress. The patient has remained stable throughout the entire ED visit and is without objective evidence for acute process requiring urgent intervention or hospitalization. The patient is stable for discharge; counseling is provided and documented as above, discussed symptomatic treatment and specific conditions for return. MD Attestation Attestation Scribe Attestation: I, Rebekah Greer, am scribing for and in the presence of Dr. Ordoñez. Provider Notation: Although this document has been carefully reviewed, there may still be some phonetic and other typographical errors. These errors are purely grammatical due to imperfections in the software program and should not be construed in any way to compromise the substance of the patient's medical care during this visit.
== END 2024-06-20 20:50 | disposition home or self-care (01) ==
PROVIDERS: Emergency Medicine; Emergency Provider Emergency Medicine; PCP Physician Assistant
DX: E16.2 Hypoglycemia, unspecified (principal); I10 Essential (primary) hypertension; Z86.73 Personal history of transient ischemic attack (TIA), and cerebral infarction without residual deficits; M79.89 Other specified soft tissue disorders
CPT/HCPCS: 81001; 93971; 99284; A9270

== ENCOUNTER 2024-07-02 08:31 | Emergency (ER) | payer MEDICARE, MEDICAID, SELFPAY ==
[2024-07-02 08:41] VITALS: BP 166/77; PULSE 95; RESP 16; TEMP 36.4; O2SAT 98; BMI 25.8
--- NOTE | 2024-07-02 08:49 | PD.EDRME ---
Rapid Medical Screening Exam E Arrival date/time: 07/02/24 08:31 73-year-old male history of hypertension, hyperlipidemia seizures presents to the emergency department with caregiver for complaints of generalized weakness history of anemia currently on ferrous sulfate. Caregiver reports most likely worsening anemia. Adds constipation for 7 days. I have greeted and performed a focused initial assessment of this patient. Initial appropriate labs ordered at this time. A comprehensive ED assessment and evaluation of the patient and analysis of all test and completion of medical decision making process will be conducted by additional ED provider. Chief Complaint: Weakness Vital signs: Vital Signs Temperature 97.6 F 07/02/24 08:41 Pulse Rate 95 07/02/24 08:41 Respiratory Rate 16 07/02/24 08:41 Blood Pressure 166/77 H 07/02/24 08:41 Pulse Oximetry (%) 98 07/02/24 08:41 Oxygen Delivery Method Room Air 07/02/24 08:41
--- NOTE | 2024-07-02 08:51 | EKG_ITS ---
[facility] Test Date: 2024-07-02 Pat Name: MELISA MCCLAIN Department: Room: - Gender: Male Bingo Attendant: : 1950 Requested By: Jennifer Gonzalez ([facility]) [place] Order Number: [id number] Reading MD: Jennifer Gonzalez ([facility]) [place] Measurements Intervals [place] Rate: 62 P: 67 CO: 205 QRS: 52 QRSD: 114 T: 63 QT: 447 QTc: 456 Interpretive Statements SINUS RHYTHM MODERATE INTRAVENTRICULAR CONDUCTION DELAY [110+ ms QRS DURATION] NONSPECIFIC T-WAVE ABNORMALITY Compared to ECG 06/11/2024 19:11:48 Intraventricular conduction delay now present T-wave abnormality still present /store/S0/[id number].pdf
[2024-07-02 09:24] LABS: Basophils % (Auto) 0 % (0-2.5); Eosinophils # (Auto) 0.4 Thou/mm3 (0.0-0.5); Eosinophils % (Auto) 8 % (0-10); Hematocrit 30.1 % (41.0-53.0); Immature Granulocytes % (Auto) 0 % (0-0); Immature Granulocytes Auto 0.01 Thou/mm3 (0.00-0.00); Lymphocytes % (Auto) 21 % (10-50); Mean Corpuscular HGB Conc 33.2 g/dl (31.0-37.0); Mean Corpuscular Hemoglobin 27.2 pg (25.0-35.0); Mean Corpuscular Volume 82 fL (80-100); Monocytes # (Auto) 0.5 Thou/mm3 (0.0-0.8); Monocytes % (Auto) 9 % (0-12); Neutrophils % (Auto) 62 % (37-80); Nucleated Red Blood Cell % 0 /100 WBC (0); Platelet Count 180 Thou/mm3 (140-440); Red Blood Count 3.68 Miln/mm3 (4.50-5.90); White Blood Count 4.8 Thou/mm3 (3.8-10.6)
--- NOTE | 2024-07-02 09:39 | PD.EDADULT ---
ED General RME/HPI General Chief complaint: Weakness Stated complaint: WEAK, CONSTIPATED Arrival date/time: 07/02/24 08:31 RME / HPI RME / HPI narrative: Patient is a 73 years old male with past medical history of hypertension, HFpEF, hyperlipidemia, chronic anemia, seizures presented to the emergency department complaining of generalized weakness and constipation for 7 days. Caregiver is at the bedside reports patient got progressively more weak over the last several weeks and became more pale. He is on ferrous sulfate 3 times a week. Caregiver reports patient's oral intake of solids is ok but not liquids. He denies any abdominal pain, bloating, burping, abdominal distension, fever, chills, melena, blood per rectum, nausea, vomiting, dysuria symptoms. He was also more somnolent and confused over the last week. His mobility has also decreased and he now needs assistance. Related Data Home Medications ?Medication ?Instructions ?Recorded ?Confirmed amlodipine 5 mg tablet (Norvasc) 10 mg PO BID #0 tabs 02/24/15 07/02/24 aspirin 81 mg tablet,delayed 81 mg PO QAM HEART ##0 02/24/15 07/02/24 release clopidogrel 75 mg tablet (Plavix) 75 mg PO HS BLOOD THINNER #0 tabs 02/24/15 07/02/24 metoprolol tartrate 50 mg tablet 100 mg PO BID HBP #0 tabs 02/24/15 07/02/24 phenytoin sodium extended 100 mg 300 mg PO HS Seizures ##0 02/24/15 07/02/24 capsule atorvastatin 10 mg tablet (Lipitor) 10 mg PO HS High Cholesterol #0 05/14/15 07/02/24 tabs clonidine HCl 0.3 mg tablet 0.3 mg PO TID High Blood Pressure 05/14/15 07/02/24 #0 tabs sertraline 100 mg tablet (Zoloft) 200 mg PO QDAY DEPRESSION #0 tabs 06/07/19 07/02/24 ascorbic acid (vitamin C) 1,000 mg 1,000 mg PO QDAY 02/14/21 07/02/24 tablet (Vitamin C) loratadine 10 mg tablet 10 mg PO QDAY 02/14/21 07/02/24 pantoprazole 20 mg tablet,delayed 20 mg PO QAM 11/03/21 03/21/25 release spironolactone 50 mg tablet 50 mg PO QDAY 02/14/21 07/02/24 tamsulosin 0.4 mg capsule (Flomax) 0.8 mg PO HS PROSTATE #0 caps 12/27/21 07/02/24 aripiprazole 10 mg tablet 10 mg PO QDAY 07/02/24 07/02/24 atorvastatin 20 mg tablet 20 mg PO QDAY 07/02/24 07/02/24 bumetanide 2 mg tablet 2 mg PO QDAY 07/02/24 07/02/24 docusate sodium 250 mg capsule 250 mg PO BID 07/02/24 07/02/24 ferrous sulfate 325 mg (65 mg 325 mg PO .THREE TIMES WEEK 07/02/24 07/02/24 iron) tablet (FeroSul) labetalol 200 mg tablet 200 mg PO BID 07/02/24 07/02/24 lactulose 10 gram/15 mL oral 15 ml PO TID CONSTIPATION 07/02/24 07/02/24 solution olmesartan 40 mg tablet 40 mg PO QDAY 07/02/24 07/02/24 phenytoin sodium extended 300 mg 300 mg PO HS 07/02/24 07/02/24 capsule potassium chloride 20 mEq 20 meq PO QDAY 07/02/24 07/02/24 tablet,extended release(part/cryst) sennosides 8.6 mg-docusate sodium 0.5 tab PO BID 07/02/24 07/02/24 50 mg tablet (Stool Softener-Stimulant Laxative) venlafaxine 150 mg 150 mg PO QDAY 07/02/24 07/02/24 capsule,extended release 24 hr Allergies Allergy/AdvReac Type Severity Reaction Status Date / Time codeine Allergy Unknown UNKNOWN Verified 07/02/24 08:33 PER PT morphine Allergy Verified 07/02/24 08:33 Review of Systems Review of Systems Systems Reviewed: All systems reviewed, normal except as documented ED Exam Narrative Physical exam: Gen: Well-developed and well-nourished elderly male. HEENT: NCAT, PERRLA, EOMI, MMM, pale conjunctivae. CVS: normal S1 and S2. RRR. No M/R/G. Resp: minimal crackles B/L bases. No rhonchi, rales, or wheezing. Abd: soft, non-tender, non-distended. BS+ in all 4 quadrants. MSK: Good ROM in BUE & BLE. Skin is pale. No rash. 2+ edema BLE, LLE is bigger in size. Neuro: CN II-XII grossly intact. Strength 5/5 in BUE & BLE. Alert and oriented x3. Course Quality Measures none Orders Category Date Time Status CT Screening NOW Care 07/02/24 12:06 Completed EKG (ED ONLY) *Do not use* NOW Care 07/02/24 08:51 Completed Insert IV NOW Care 07/02/24 08:51 Completed NPO STAT Care 07/02/24 08:51 Completed Occult Blood,Stool (Nursing) NOW Care 07/02/24 08:[address] abdomen pelvis w con Stat Exams 07/02/24 12:[address] head/brain wo con Stat Exams 07/02/24 12:06 Completed EKG (ED Only) Stat Exams 07/02/24 08:51 Draft BNP [B-Type Natriuretic Peptide] Stat Lab 07/02/24 09:19 Completed CBC Stat Lab 07/02/24 09:19 Completed Comprehensive Metabolic Panel Stat Lab 07/02/24 09:19 Completed Free T4 (Free Thyroxine) Stat Lab 07/02/24 09:19 Completed Lipase Stat Lab 07/02/24 09:19 Completed Magnesium Stat Lab 07/02/24 09:19 Completed Prothrombin Time with INR Stat Lab 07/02/24 09:19 Completed TSH [Thyroid Stimulating Hormone] Stat Lab 07/02/24 09:19 Completed Troponin I Stat Lab 07/02/24 09:19 Completed Urinalysis Stat Lab 07/02/24 10:30 Completed Sodium Chloride 0.9% 250 ml [Ns] 250 ml Med 07/02/24 12:06 Discontinued IV 999 mls/hr Vital Signs Vital signs: Vital Signs Temperature 97.6 F 07/02/24 08:41 Pulse Rate 95 07/02/24 08:41 Respiratory Rate 16 07/02/24 08:41 Blood Pressure 166/77 H 07/02/24 08:41 Pulse Oximetry (%) 98 07/02/24 08:41 Oxygen Delivery Method Room Air 07/02/24 08:41 Procedures -ED EKG Interpretation #1: Date of EK07/02/24 Time of EK:00 Rate: 62 Interpretation: Reviewed by me EKG Impression: Normal sinus rhythm and Non-specific ST-T MDM Patient data External records reviewed:: [facility] previous records Clinical information provided by:: patient and family Social determinants that could affect healthcare access:: none Patient has the following chronic illnesses:: Hypertension, HFpEF, hyperlipidemia, chronic anemia, seizures. How is presenting disease/condition affected by chronic disease/condition?: exacerbated by Evaluation data The following diagnostics were reviewed and interpreted by me:: lab results, radiology exam(s) and EKG tracing(s) Lab and/or radiology exams considered but not ordered:: na Interpretation Summary: Constipation, chronic normocytic anemia (stable), mild dehydration, hypothyroidism. Medications Medications considered but not ordered:: laxatives Medication administrations:: Medication Administration History Discontinued Medications Sodium Chloride (Ns) 250 mls @ 999 mls/hr IV .Q16M ONE Stop: 07/02/24 12:21 Last Infusion: 07/02/24 12:45 Dose: Infused Documented By: Admin: 07/02/24 12:29 Dose: 999 mls/hr Documented By: JESSICA as above Consultations Consultation(s) initiated? (list below): No Diagnosis Differential Diagnosis ED Complaint MDM: Worsening anemia, hypothyroidism, infection, CVA, constipation Most likely diagnosis given after review of the tests above:: constipation Admission Indicated Admission indicated?: not indicated Explain why admission is indicated or not indicated:: Patient is having constipation due to immobilization and associated conditions including hypothyroidism. Patient will need to follow-up with PCP. For constipations he will be recommended to use Fleet enema. Admission Request Was there a request for admission?: No Disposition Plan Disposition Plan: Discharge Discharge Attestation Discharge Attestation: The patient and all family members were given an opportunity to ask questions and understood the discharge instructions. Discharge instructions specifically effects, indications for sooner follow up or return to the emergency department, and the expected course of current diagnosis. Patient condition: Stable Medical Decision Making MDM Narrative MDM Narrative: The patient, a 73-year-old male with a history of hypertension, HFpEF, hyperlipidemia, chronic normocytic anemia, hypothyroidism, and seizures, presented with generalized weakness and constipation for 7 days. The caregiver reported progressive worsening of symptoms over weeks, including pallor, somnolence, confusion, and decreased mobility requiring assistance. Denial of associated abdominal, urinary, or infectious symptoms, as well as stable findings on examination and imaging, supported a multifactorial etiology including chronic anemia, mild dehydration, and hypothyroidism. Physical examination revealed pallor, pale conjunctivae, bilateral lower extremity edema (greater on the left), and minimal crackles at the lung bases. Neurological examination showed no focal deficits. Laboratory findings confirmed chronic normocytic anemia (stable) and mild dehydration, while hypothyroidism was noted as a potential contributing factor. Imaging ruled out acute pathology. At discharge, the patient is clinically stable and will follow up with his primary care physician for ongoing management of chronic anemia and hypothyroidism. Education was provided to the caregiver regarding hydration, dietary changes, fleet enema at home for constipation, and monitoring of symptoms. Differential Diagnosis Differential Diagnosis: Worsening anemia, hypothyroidism, infection, CVA, constipation Lab Data 07/02/24 09:19 07/02/24 09:19 Labs: Lab Results 07/02/24 07/02/24 Range/Units 09:19 10:30 WBC 4.8 (3.8-10.6) Thou/mm3 RBC 3.68 L (4.50-5.90) Miln/mm3 Hgb 10.0 L (13.5-16.0) g/dL Hct 30.1 L (41.0-53.0) % MCV 82 (80-100) fL MCH 27.2 (25.0-35.0) pg MCHC 33.2 (31.0-37.0) g/dl RDW Std Deviation 45.0 H (35.1-43.9) fL Plt Count 180 (140-440) Thou/mm3 Neut % (Auto) 62 (37-80) % Lymph % (Auto) 21 (10-50) % [place] % (Auto) 9 (0-12) % Eos % (Auto) 8 (0-10) % Baso % (Auto) 0 (0-2.5) % Neut # (Auto) 3.0 (1.8-7.7) Thou/mm3 Lymph # (Auto) 1.0 (1.0-4.8) Thou/mm3 [place] # (Auto) 0.5 (0.0-0.8) Thou/mm3 Eos # (Auto) 0.4 (0.0-0.5) Thou/mm3 Baso # (Auto) 0.0 (0.0-0.2) Thou/mm3 Immature Gran # (Auto) 0.01 H (0.00-0.00) Thou/mm3 Absolute Nucleated RBC 0.00 (0.00-0.00) Thou/mm3 Immature Gran % 0 (0-0) % Nucleated RBC % 0 (0) /100 WBC PT 11.3 (9.0-12.2) Seconds INR 1.0 (0.9-1.3) Sodium 134 L (136-145) mMol/L Potassium 4.4 (3.4-5.1) mMol/L Chloride 100 (98-107) mMol/L Carbon Dioxide 27.3 (20.0-31.0) mMol/L Anion Gap 7 (7-16) BUN 32 H (9-23) mg/dL Creatinine 1.2 (0.6-1.3) mg/dL Estim Creat Clear Calc 48.7 L (>60) mL/min eGFR > 60 (60 - ) See Note BUN/Creatinine Ratio 27 H (12-20) Ratio Glucose 107 H (74-106) mg/dL Calculated Osmolality 275 (275-295) Calcium 9.7 (8.3-10.6) mg/dL Corrected Calcium 9.8 (8.5-10.1) mg/dL Magnesium 1.7 (1.6-2.6) mg/dL Total Bilirubin 0.2 L (0.3-1.2) mg/dL AST 54 H (0-34) U/L ALT 35 (10-49) U/L Alkaline Phosphatase 150 H (46-116) U/L Troponin I < 0.020 (0.0-0.045) ng/mL B-Natriuretic Peptide 483 H* (0-100) pg/mL Total Protein 7.0 (5.7-8.2) gm/dL Albumin 3.9 (3.4-4.8) gm/dL Globulin 3.1 (2.3-3.5) gm/dL Albumin/Globulin Ratio 1.3 (1.2-2.2) Lipase 50 (12-53) U/L TSH 5.50 H (0.55-4.78) uIU/mL Free T4 0.70 L (0.89-1.76) ng/dL Ur Collection Type Clean Catch Urine Color Colorless A (Lt Yel-Yel) Urine Clarity Clear (Clear/Hazy) Urine pH 6.5 (5.0-7.0) Ur Specific Gregory 1.007 (1.001-1.035) Urine Protein Trace (Neg - Trace) Urine Glucose (UA) Negative (Negative) Urine Ketones Negative (Negative) Urine Blood 1+ A (Negative) Urine Nitrite Negative (Negative) Urine Bilirubin Negative (Negative) Urine Urobilinogen (Auto) Negative (0.0-1.0) mg/dL Ur Leukocyte Esterase Negative (Negative) Urine RBC 22 H (0-3) /hpf Urine WBC 1 (0-5) /hpf Ur Squamous Epith Cells 0 (0-5) /hpf Urine Bacteria None (None) Hyaline Casts 1 (0-1) /hpf Discharge Plan Plan Patient Disposition: HOME (Self Care) Prescriptions/Referrals Prescriptions/Med Rec: No Action phenytoin sodium extended 100 MG capsule 300 mg PO HS Qty: 0 clopidogrel [Plavix] 75 MG tablet 75 mg PO HS Qty: 0 amlodipine [Norvasc] 5 MG tablet 10 mg PO BID Qty: 0 aspirin 81 mg Tablet,Delayed Release (Dr/Ec) 81 mg PO QAM Qty: 0 metoprolol tartrate 50 MG tablet 100 mg PO BID Qty: 0 atorvastatin [Lipitor] 10 MG tablet 10 mg PO HS Qty: 0 clonidine HCl 0.3 MG tablet 0.3 mg PO TID Qty: 0 sertraline [Zoloft] 100 mg tablet 200 mg PO QDAY Qty: 0 tamsulosin [Flomax] 0.4 mg capsule 0.8 mg PO HS Qty: 0 ascorbic acid (vitamin C) [Vitamin C] 1,000 mg Tablet 1,000 mg PO QDAY pantoprazole 20 mg Tablet,Delayed Release (Dr/Ec) 20 mg PO QAM loratadine 10 mg Tablet 10 mg PO QDAY spironolactone 50 mg Tablet 50 mg PO QDAY lactulose 10 gram/15 mL solution 15 ml PO TID sennosides-docusate sodium [Stool Softener-Stimulant Laxat] 8.6-50 mg tablet 0.5 tab PO BID aripiprazole 10 mg tablet 10 mg PO QDAY atorvastatin 20 mg tablet 20 mg PO QDAY bumetanide 2 mg tablet 2 mg PO QDAY docusate sodium 250 mg capsule 250 mg PO BID labetalol 200 mg tablet 200 mg PO BID ferrous sulfate [FeroSul] 325 mg (65 mg iron) tablet 325 mg PO .THREE TIMES WEEK olmesartan 40 mg tablet 40 mg PO QDAY phenytoin sodium extended 300 mg capsule 300 mg PO HS potassium chloride 20 mEq tablet,ER particles/crystals 20 meq PO QDAY venlafaxine 150 mg capsule,extended release 24hr 150 mg PO QDAY Referrals: Kevan Leon PA-C [Primary Care Provider] - In 1 week Problem List Clinical Impression: Constipation, Generalized weakness Patient/Caregiver Discharge Instructions Education Materials: Treating Constipation, Eating a High-Fiber Diet, ED Constipation (Adult) Additional Instructions: Recommended high-fiber diet and increase physical activity. Recommended Fleet enemas for constipations. Continue home medications as prescribed. Follow-up with PCP within 1 week. Recommended to repeat TSH and consider starting thyroid hormone replacement therapy. Return to the ED if symptoms recur or worsen. Print Language: Latvian Stand Alone Forms: [employer] Award Info., Patient Portal Info Letter Attestation Attestation The patient was seen by the PGY-2. I, the co-signing physician, also encountered and examined the patient remaining present during the entire ER visit for consultation as needed. I agree with the plan and documentation.
[2024-07-02 09:40] LABS: Prothrombin Time 11.3 Seconds (9.0-12.2)
[2024-07-02 09:44] LABS: Alanine Aminotransferase 35 U/L (10-49); Albumin, Serum 3.9 gm/dL (3.4-4.8); Albumin/Globulin Ratio 1.3 (1.2-2.2); Alkaline Phosphatase 150 U/L (46-116); Anion Gap 7 (7-16); Aspartate Amino Transferase 54 U/L (0-34); BUN/Creatinine Ratio 27 Ratio (12-20); Bilirubin,Total 0.2 mg/dL (0.3-1.2); Blood Urea Nitrogen 32 mg/dL (9-23); Calcium 9.7 mg/dL (8.3-10.6); Calcium (Corrected) 9.8 mg/dL (8.5-10.1); Carbon Dioxide 27.3 mMol/L (20.0-31.0); Chloride 100 mMol/L (98-107); Creatinine (Component) 1.2 mg/dL (0.6-1.3); Estimated Creatinine Clearance 48.7 mL/min (>60); Globulin 3.1 gm/dL (2.3-3.5); Glucose 107 mg/dL (74-106); Lipase 50 U/L (12-53); Magnesium 1.7 mg/dL (1.6-2.6); Osmolality,Calculated 275 (275-295); Potassium 4.4 mMol/L (3.4-5.1); Sodium 134 mMol/L (136-145); Troponin I < 0.020 ng/mL (0.0-0.045); eGFR > 60 See Note
[2024-07-02 10:21] VITALS: BP 140/75; PULSE 60; RESP 16; TEMP 36.5; O2SAT 99
[2024-07-02 10:45] LABS: Collection Type, Urine Clean Catch; Squamous Epithelial Cell,Urine 0 /hpf (0-5)
[2024-07-02 10:50] LABS: Bilirubin,Urine Negative (Negative); Blood,Urine 1+ (Negative); Clarity,Urine Clear (Clear/Hazy); Color,Urine Colorless (Lt Yel-Yel); Glucose, Urine Negative (Negative); Hyaline Casts,Urine 1 /hpf (0-1); Ketones,Urine Negative (Negative); Leukocyte Esterase,Urine Negative (Negative); Nitrite,Urine Negative (Negative); PH,Urine 6.5 (5.0-7.0); Protein,Urine Trace (Neg - Trace); RBC,Urine 22 /hpf (0-3); Specific Gravity,Urine 1.007 (1.001-1.035); Urobilinogen,Urine Negative mg/dL (0.0-1.0); WBC,Urine 1 /hpf (0-5)
[2024-07-02 10:50] LABS: B-Type Natriuretic Peptide 483 pg/mL (0-100)
[2024-07-02 12:00] VITALS: BP 171/93; PULSE 73; RESP 16; TEMP 36.6; O2SAT 99
--- NOTE | 2024-07-02 12:06 | XR_ITS ---
Examination: CT brain head without contrast. 2-D sagittal coronal reconstructions Date and time of exam:July 02, 2024 1303 hours Comparison June 11, 2024 INDICATIONS: History CVA, weakness headache altered mental status one week CTDI: vol (mGy):44 DLP: (mGycm):835 Technique: Multiple CT axial sections of the brain have been obtained, 5 mm slice thickness. Contrast has not been administered. 2-D sagittal, coronal reconstructions have been obtained Low dose protocols were performed. One or more of the following dose reduction techniques were used; automated exposure control, adjustment of the mA and/or KV according to patient size, use of iterative reconstruction technique. Findings: No significant ventricular enlargement. Again noted severe enlargement left lateral ventricular system with left cerebral atrophy and mild to moderate enlargement right ventricular system No interval hemorrhage or mass effect IMPRESSION: Chronic changes as above No interval hemorrhage or mass effect Brain MRI follow-up would best assess for acute ischemic change
--- NOTE | 2024-07-02 12:06 | XR_ITS ---
Examination: CT abdomen with intravenous contrast CT pelvis with intravenous contrast 2-D coronal reconstructions 2-D sagittal reconstructions Date and time of exam:July 02, 2024 1303 hours Comparison December 31, 2022 INDICATIONS: Onset abdominal pain beginning one week ago, history hematuria. CTDI: vol (mGy) 12.7 DLP: (mGycm) 840 Technique: Multiple axial sections of the abdomen and pelvis have been obtained. 64 slice high-resolution scanner used. 3 mm axial sections have been obtained, post intravenous injection 60 cc [id number] 2-D sagittal, coronal reconstructions obtained. Low dose protocols were performed. One or more of the following dose reduction techniques were used; automated exposure control, adjustment of the mA and/or KV according to patient size, use of iterative reconstruction technique. Findings: Stable 5 mm pulmonary nodule right lower lobe No focal liver or splenic lesions No gallstones No pancreatic mass Aorta normal size No hydronephrosis No pericecal inflammatory change Large amounts of stool throughout the entire colon Normal seminal vesicles Transverse prostate dimension 4 cm Intact urinary bladder Advanced disc narrowing L5-S1 Moderate narrowing hip joints IMPRESSION: Large amounts of stool throughout the entire colon No bowel obstruction No CT findings of appendicitis or diverticulitis
[2024-07-02] MEDS: SODIUM CHLORIDE 0.9% 250 ML 250 ML 999 ML IV (12:29)
[2024-07-02 13:59] VITALS: BP 164/86; PULSE 76; RESP 18; TEMP 36.6; O2SAT 100
== END 2024-07-02 15:01 | disposition home or self-care (01) ==
PROVIDERS: Nurse Practitioner Primary Care; Student in an Organized Health Care Education/Training Program; Emergency Provider Emergency Medicine; PCP Physician Assistant
DX: K59.00 Constipation, unspecified (principal); R53.1 Weakness; R51.9 Headache, unspecified; R41.82 Altered mental status, unspecified; I45.89 Other specified conduction disorders; I11.0 Hypertensive heart disease with heart failure; I50.32 Chronic diastolic (congestive) heart failure
CPT/HCPCS: 36415; 70450; 74177; 80053; 81001; 83690; 83735; 83880; 84439; 84443; 84484; 85025; 85610; 93005; 99285; A4649; J7050; Q9967

== ENCOUNTER 2025-03-29 07:30 | Day surgery (SDC) | payer MEDICARE, MEDICAID, SELFPAY ==
--- NOTE | 2025-03-28 07:00 | EKG_ITS ---
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
[2025-03-28 11:16] VITALS: BMI 32.2
--- NOTE | 2025-03-28 11:31 | SUR.PREOP ---
Pt resides in a snf, caregiver Mervin phone number [phone], stated pt is not conserved and pt signs his own consent. 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
--- NOTE | 2025-03-28 11:43 | ESHP_ITS ---
RE: MELISA MCCLAIN : 1950 DATE OF ADMISSION: 03/28/25 Patient is a 74-year-old gentleman with phimosis. He is now scheduled to have circumcision. Planned procedure, risks, and complications have been discussed with the patient. Patient has understood them and agreed to proceed. Patient has a tight phimosis. PAST MEDICAL HISTORY: He has history of hypertension. No history of diabetes mellitus. PREVIOUS SURGERIES: Included surgery on his right arm and surgery on his head. ALLERGIES: NONE KNOWN. MEDICATIONS: He takes clonidine, Plavix, lisinopril, statin medication, and Norvasc. Patient has been asked to stop his Plavix 1 week prior to his surgery. CLINICAL EXAMINATION: Reveals: HEENT: Normal. NECK: Supple. LUNGS: Clear. CARDIAC: Heart sounds are normal. ABDOMEN: Soft. GENITOURINARY: Phallus reveals tight phimosis. Testes are down in scrotum. RECTAL: Reveals a moderately enlarged smooth prostate without any nodules. IMPRESSION: Phimosis. PLAN: Circumcision. Planned procedure, risks, and complications have been discussed with the patient. Patient has understood them and agreed to proceed. DT: ::39 TT: 11:42:00 Ref: [id number] - TID: [id number]
[2025-03-28 12:40] LABS: Collection Type, Urine Clean Catch; Squamous Epithelial Cell,Urine 0 /hpf (0-5)
[2025-03-28 13:30] LABS: Basophils # (Auto) 0.0 Thou/mm3 (0.0-0.2); Basophils % (Auto) 0 % (0-2.5); Eosinophils # (Auto) 0.6 Thou/mm3 (0.0-0.5); Eosinophils % (Auto) 9 % (0-10); Hematocrit 30.7 % (41.0-53.0); Hemoglobin 9.8 g/dL (13.5-16.0); Immature Granulocytes Auto 0.01 Thou/mm3 (0.00-0.00); Lymphocytes # (Auto) 1.3 Thou/mm3 (1.0-4.8); Lymphocytes % (Auto) 19 % (10-50); Mean Corpuscular HGB Conc 31.9 g/dl (31.0-37.0); Mean Corpuscular Hemoglobin 29.2 pg (25.0-35.0); Mean Corpuscular Volume 91 fL (80-100); Monocytes # (Auto) 0.6 Thou/mm3 (0.0-0.8); Monocytes % (Auto) 9 % (0-12); Neutrophils # (Auto) 4.2 Thou/mm3 (1.8-7.7); Neutrophils % (Auto) 62 % (37-80); Nucleated Red Blood Cell # 0.00 Thou/mm3 (0.00-0.00); Nucleated Red Blood Cell % 0 /100 WBC (0); Platelet Count 165 Thou/mm3 (140-440); RDW Standard Deviation 48.1 fL (35.1-43.9); Red Blood Count 3.36 Miln/mm3 (4.50-5.90); White Blood Count 6.7 Thou/mm3 (3.8-10.6)
[2025-03-28 13:52] LABS: Alanine Aminotransferase 20 U/L (10-49); Albumin, Serum 3.7 gm/dL (3.4-4.8); Albumin/Globulin Ratio 1.1 (1.2-2.2); Alkaline Phosphatase 117 U/L (46-116); Anion Gap 10 (7-16); Aspartate Amino Transferase 24 U/L (0-34); BUN/Creatinine Ratio 23 Ratio (12-20); Bilirubin,Total 0.3 mg/dL (0.3-1.2); Blood Urea Nitrogen 27 mg/dL (9-23); Calcium 8.9 mg/dL (8.3-10.6); Calcium (Corrected) 9.1 mg/dL (8.5-10.1); Carbon Dioxide 29.3 mMol/L (20.0-31.0); Chloride 104 mMol/L (98-107); Creatinine (Component) 1.2 mg/dL (0.6-1.3); Estimated Creatinine Clearance 48.7 mL/min (>60); Globulin 3.4 gm/dL (2.3-3.5); Glucose 77 mg/dL (74-106); Osmolality,Calculated 289 (275-295); Potassium 4.0 mMol/L (3.4-5.1); Sodium 143 mMol/L (136-145); Total Protein 7.1 gm/dL (5.7-8.2); eGFR > 60 See Note
[2025-03-28 13:58] LABS: Bilirubin,Urine Negative (Negative); Blood,Urine 1+ (Negative); Clarity,Urine Clear (Clear/Hazy); Color,Urine Colorless (Lt Yel-Yel); Glucose, Urine Negative (Negative); Hyaline Casts,Urine 1 /hpf (0-1); Ketones,Urine Negative (Negative); Leukocyte Esterase,Urine Negative (Negative); Nitrite,Urine Negative (Negative); PH,Urine 6.0 (5.0-7.0); Protein,Urine 1+ (Neg - Trace); RBC,Urine 13 /hpf (0-3); Specific Gravity,Urine 1.009 (1.001-1.035); Urobilinogen,Urine Negative mg/dL (0.0-1.0); WBC,Urine < 1 /hpf (0-5)
[2025-03-29] VITALS (8 sets, daily range): BP systolic 154–176; BP diastolic 88–94; PULSE 63–75; RESP 12–20; TEMP 36.4–36.5; O2SAT 99–100; BMI 30.9
--- NOTE | 2025-03-29 10:30 | SUR.PHASEI ---
1030 patient arrived to recovery resting comfortably in [facility], LMA in place, on oxygen 10L via nasal cannula inserting into LMA, breathing unlabored, vital signs stable, dressing intact to penis; sutures, ointment, telfa, coban, silk tape, no bleeding noted, report received from Karthik BULL and Robert TOMAS
--- NOTE | 2025-03-29 11:30 | SUR.PHASEII ---
1130 Patient meets discharge criteria from recovery, awake and alert, breathing unlabored, vital signs stable, denies pain and nausea, drinking cranberry juice; tolerating well, assisted with dressing into his clothing by his caregiver and this proposal lead writer, discharge instructions given to patient and caregiver, caregiver signed discharge instructions. Patient given all his belongings prior to discharge, transported via wheelchair and left in a private vehicle.
--- NOTE | 2025-03-30 11:43 | ESOP_ITS ---
RE: MELISA MCCLAIN : 1950 DATE OF OPERATION: 03/29/20 PREOPERATIVE DIAGNOSIS: Tight phimosis. POSTOPERATIVE DIAGNOSIS: Tight phimosis. PROCEDURE PERFORMED: Circumcision. ANESTHESIA: General. INDICATION: Patient is a 74-year-old gentleman with tight phimosis. He does not have any history of diabetes mellitus. Patient was now scheduled to have circumcision. Planned procedure, risks, and complications have been discussed with the patient. Patient understood them and agreed to proceed. DESCRIPTION OF PROCEDURE: After the patient was brought to the operating table under adequate general anesthesia and supine position, parts were prepped and draped in the usual fashion. Circumcision was then carried out in a standard fashion by excising the foreskin in a circumferential manner at the level of ahuja glandis. Complete hemostasis was obtained by using electrocoagulation. Skin was reapproximated back by placing interrupted sutures of 3-0 chromic catgut sutures. Sterile dressing was then applied. Local anesthetic was injected at the base of the penis. Sterile dressing was then applied. Patient was then transferred to the recovery room in a satisfactory condition, having tolerated the entire procedure well. Sponge count and needle count at the end of the procedure was found to be correct. Estimated blood loss was approximately 3 mL. DT: 11:04:07 TT: 20:51:00 Ref: [id number] - TID: [id number]
== END 2025-03-29 11:30 | disposition home or self-care (01) ==
PROVIDERS: Anesthesiology; PCP Family Medicine; Referring Provider Surgery; Visit Provider Surgery
PROC: (CPT 54161; principal; 2025-03-29 09:30)
DX: N47.1 Phimosis (principal); Z01.810 Encounter for preprocedural cardiovascular examination; I10 Essential (primary) hypertension
CPT/HCPCS: 54161; 36415; 80053; 81001; 85025; 93005; A4217; A4649; J0690; J2704; J3010; J3490; A9270; J0665; J1596; J1920